=== PATIENT | male | born 1970 | race Caucasian/White ===

== ENCOUNTER 2022-03-11 20:22 | Emergency (ER) | payer BC ==
[~2022-03-11] VITALS: Ht 175.3 cm; Wt 105.2 kg
[2022-03-11 21:35] LABS: BASO # 0.04 K/mm3 (0.02-0.10); EOS # 0.15 K/mm3 (0.04-0.40); EOS % 3.4 % (0.0-4.0); HEMATOCRIT 40.2 % (42.0-52.0); HEMOGLOBIN 14.1 g/dL (13.5-18.0); LYMPH# 2.11 K/mm3 (1.50-4.00); MEAN CELL VOLUME 84 fl (78-100); MEAN CORPUSCULAR HEMOGLOBIN 30 pg (27-31); MEAN CORPUSCULAR HGB CONC 35 g/dL (33-37); MEAN PLATELET VOLUME 9.5 fl (7.4-10.4); MONO # 0.47 K/mm3 (0.20-0.80); NEU # 1.64 K/mm3 (1.40-6.50); PLATELET COUNT 180 K/mm3 (130-400); RED BLOOD COUNT 4.77 M/mm3 (4.20-5.60); WHITE BLOOD COUNT 4.4 K/mm3 (4.8-10.8)
[2022-03-11 21:41] LABS: ALBUMIN 4.1 g/dL (3.5-5.0)
[2022-03-11 21:42] LABS: POTASSIUM 4.4 mmol/L (3.5-5.1)
[2022-03-11 21:43] LABS: CALCIUM 8.8 mg/dL (8.3-10.5)
[2022-03-11 21:44] LABS: TOTAL PROTEIN 6.6 g/dL (6.4-8.3)
[2022-03-11 21:45] LABS: PROTHROMBIN TIME 11.6 SECONDS (9.0-12.0)
[2022-03-11 21:46] LABS: TOTAL BILIRUBIN 0.6 mg/dL (0.2-1.2)
[2022-03-11] MEDS ORDERED: TRAMADOL 50 MG TAB PO (21:54)
[2022-03-11] MEDS ORDERED: XARELTO20 MG PO (21:54)
[2022-03-11] MEDS ORDERED: BENADRYL ALLERG25 M2 PO (21:57)
[2022-03-11] MEDS ORDERED: LIPITOR20 M2 PO (21:57)
[2022-03-11] MEDS ORDERED: METOPROLOL SUCC50 M1 PO (21:58)
[2022-03-11] MEDS ORDERED: KLONOPIN 1MG1 MG PO (22:08)
[2022-03-11 22:18] LABS: URINE WBC 0 /hpf (0-3)
[2022-03-11 22:26] LABS: URINE APPEARANCE CLEAR; URINE BILIRUBIN NEGATIVE (NEGATIVE); URINE COLOR YELLOW; URINE GLUCOSE NEGATIVE (NEGATIVE); URINE KETONE NEGATIVE (NEGATIVE); URINE PROTEIN(semi-quant) NEGATIVE (NEGATIVE); URINE UROBILINOGEN NORMAL (NORMAL)
[2022-03-11 22:27] LABS: URINE BLOOD NEGATIVE (NEGATIVE); URINE LEUKOCYTE ESTERASE NEGATIVE (NEGATIVE); URINE NITRATE NEGATIVE (NEGATIVE)
[2022-03-11] MEDS ORDERED: ZOFRAN ODT4 MG PO (22:50)
[2022-03-11 23:35] VITALS: BP 128/84
== END 2022-03-11 23:37 | disposition home or self-care (01) ==
LOC: ED 20:22
PROVIDERS: Physician Assistant
DX: S06.0X0A Concussion without loss of consciousness, initial encounter (principal); S80.812A Abrasion, left lower leg, initial encounter; S80.811A Abrasion, right lower leg, initial encounter; S40.812A Abrasion of left upper arm, initial encounter; S40.811A Abrasion of right upper arm, initial encounter; I48.91 Unspecified atrial fibrillation; N28.9 Disorder of kidney and ureter, unspecified; M54.9 Dorsalgia, unspecified; R10.9 Unspecified abdominal pain; Z28.310 Unvaccinated for COVID-19; Z79.01 Long term (current) use of anticoagulants; Y04.8XXA Assault by other bodily force, initial encounter
CPT/HCPCS: 90715; J2405; J3010; J7030; Q9967